=== PATIENT | male | born 1945 | race Asian ===

== ENCOUNTER 2022-10-04 07:48 | Emergency (ER) | payer MEDICARE, OTHER ==
[~2022-10-04] VITALS: Ht 162.6 cm; Wt 63.6 kg
[2022-10-04] MEDS ORDERED: METF-1211 PO (08:11)
[2022-10-04] MEDS ORDERED: HYDR25TA2 PO (08:11)
[2022-10-04] MEDS ORDERED: AMLO-257 PO (08:11)
[2022-10-04 08:16] LABS: GLUCOMETER DEV NAME(LOC) ERT.5; GLUCOSE,POINT OF CARE 125 MG/DL (70-110)
[2022-10-04 08:44] LABS: COVID AG,FIA SOURCE NASAL SWAB
[2022-10-04 09:23] LABS: INFLUENZA TYPE A NEGATIVE FOR TYPE A (NEGATIVE); INFLUENZA TYPE B NEGATIVE FOR TYPE B (NEGATIVE)
[2022-10-04] MEDS ORDERED: ALBUTEROL SULFATE HFA 90 MCG/PUFF 8 GM INHALER IH ONE (11:45)
[2022-10-04] MEDS ORDERED: AMOX500C2 PO (11:47)
[2022-10-04 12:10] VITALS: BP 118/75
== END 2022-10-04 12:30 | disposition home or self-care (01) ==
LOC: EMS 07:55
DX: J32.9 Chronic sinusitis, unspecified (principal); E11.9 Type 2 diabetes mellitus without complications; I10 Essential (primary) hypertension; F17.210 Nicotine dependence, cigarettes, uncomplicated; Z20.822 Contact with and (suspected) exposure to COVID-19
CPT/HCPCS: 99284; 71045; 87426; 82962; 87804; 94640; J3535

== ENCOUNTER 2023-03-18 07:27 | Emergency (ER) | payer MEDICARE, OTHER ==
[~2023-03-18] VITALS: Ht 162.6 cm; Wt 63.6 kg
[~2023-03-18 07:27] MED LIST: AMLO-257 PO; AMOX500C2 PO; HYDR25TA2 PO; METF-1211 PO
[2023-03-18 07:35] VITALS: TEMP 98.2
[2023-03-18] MEDS ORDERED: PredniSONE 20 MG TABLET PO ONE (08:00)
[2023-03-18] MEDS ORDERED: DiphenhydrAMINE HCL 25 MG CAPSULE PO ONE (08:00)
[2023-03-18 10:29] VITALS: BP 118/76; PULSE 106; RESP 18
[2023-03-18] MEDS ORDERED: PRED-554 PO (11:29)
[2023-03-18] MEDS ORDERED: DIPH25CA85 PO (11:30)
== END 2023-03-18 11:57 | disposition home or self-care (01) ==
LOC: EMS 07:48
DX: T78.40XA Allergy, unspecified, initial encounter (principal); X58.XXXA Exposure to other specified factors, initial encounter; E11.9 Type 2 diabetes mellitus without complications; I10 Essential (primary) hypertension; F17.210 Nicotine dependence, cigarettes, uncomplicated
CPT/HCPCS: 99283; 82962; J7512; 99285